=== PATIENT | female | born 1950 | race Caucasian/White ===

== ENCOUNTER → 2016-04-22 | Outpatient (CLI) | payer OTHER ==
[~2016-04-22] MED LIST: 3N1 COMMODE MC; ALEN70TA30 PO; ASPI-781 PO; ATOR10TA65 PO; BEN25 PO; DOCU-144 PO; DULR PR; NA P133E3 PR; OXY5 PO; PHEN60TA9 PO; THYR30TA PO; TOPI100T42 PO; ULT50 PO; WALK1EAC23 MC
--- NOTE | 2016-04-22 12:04 | RADRPT ---
PROCEDURE: XR pelvis/right hip. CLINICAL INDICATION: Hip pain TECHNIQUE: AP pelvis/lateral right hip view available for review. COMPARISON: 10/07/2015 FINDINGS: There is a right total hip replacement. There is no evidence of loosening of the prosthesis. There i s normal mineralization, architecture and alignment. No fractures are identified. No osseous lesio ns are present. The joints are unremarkable. The soft tissues are unremarkable. IMPRESSION: Right total hip replacement Otherwise an unremarkable examination RPTAT: [facility] .Karthik Alcala MD, MD Date Time Electronically viewed and signed by .Karthik Alcala MD, on 04/22/2016 12:04 .B/
== END | disposition home or self-care (01) ==
LOC: HKI 09:33
PROVIDERS: ATTEND Orthopaedic Surgery
DX: Z47.89 Encounter for other orthopedic aftercare (principal); Z96.641 Presence of right artificial hip joint
CPT/HCPCS: 73502; Z7500; G0463